=== PATIENT | female | born 1970 | race Caucasian/White ===

== ENCOUNTER 2023-04-29 07:00 | Day surgery (SDC) | payer MEDICARE, MEDICAID ==
[~2023-04-29 07:00] MED LIST: Dextrose 5%-0.45% NaCl 1,000 ML IV SCH
[2023-04-29] MEDS ORDERED: fentaNYL 100 MCG/2 ML SDV ONE (07:26)
[2023-04-29] MEDS ORDERED: Midazolam 1 MG/ML 2 ML SDV ONE (07:26)
[2023-04-29] MEDS ORDERED: fentaNYL 100 MCG/2 ML SDV IV ONE ×2 (08:04→08:05)
[2023-04-29] MEDS ORDERED: Midazolam 1 MG/ML 2 ML SDV IV ONE ×2 (08:05→08:06)
[2023-04-29 09:36] VITALS: BP 96/57; PULSE 66
== END 2023-04-29 10:50 | disposition home or self-care (01) ==
LOC: DL.ENDO 07:00
PROVIDERS: ATTEND Internal Medicine Gastroenterology
DX: K29.50 Unspecified chronic gastritis without bleeding (principal); K21.00 Gastro-esophageal reflux disease with esophagitis, without bleeding; K31.A0 Gastric intestinal metaplasia, unspecified; F17.210 Nicotine dependence, cigarettes, uncomplicated; Z79.899 Other long term (current) drug therapy; Z91.018 Allergy to other foods; Z88.0 Allergy status to penicillin
CPT/HCPCS: 87077; J2250; J3010; J7042

== ENCOUNTER 2023-09-12 06:29 | Day surgery (SDC) | payer MEDICARE, MEDICAID ==
[2023-09-12] MEDS: Dextrose 5%-0.45% NaCl 1,000 ML IV SCH (06:51)
[2023-09-12] MEDS ORDERED: Midazolam 1 MG/ML 2 ML SDV ONE (06:54)
[2023-09-12] MEDS ORDERED: fentaNYL 100 MCG/2 ML SDV ONE (06:55)
[2023-09-12] MEDS: fentaNYL 100 MCG/2 ML SDV IV ONE ×6 (07:35→07:46)
[2023-09-12] MEDS: Midazolam 1 MG/ML 2 ML SDV IV ONE ×7 (07:36→07:50)
[2023-09-12 08:05] VITALS: PULSE 85
[2023-09-12 12:58] VITALS: BP 94/65
== END 2023-09-12 10:50 | disposition home or self-care (01) ==
LOC: DL.ENDO 06:29
PROVIDERS: ATTEND Internal Medicine Gastroenterology
DX: Z12.11 Encounter for screening for malignant neoplasm of colon (principal); D12.0 Benign neoplasm of cecum; K21.9 Gastro-esophageal reflux disease without esophagitis
CPT/HCPCS: 88305; J2250; J3010; J7042